=== PATIENT | male | born 1940 | race Caucasian/White ===

== ENCOUNTER 2020-03-28 23:08 | Inpatient (IN) | payer MEDICARE, BC ==
[~2020-03-28] VITALS: Ht 175.3 cm; Wt 118.2 kg
[2020-03-28 23:22] LABS: BASOPHILS 0.2 % (0-2); EOSINOPHILS 4.4 % (0-7); HEMATOCRIT 38.5 % (42.0-54.0); HEMOGLOBIN 11.5 g/dL (13.5-17.5); IMMATURE GRANULOCYTES 0.2 % (0-5); MCH 28.8 pg (26.0-34.0); MCHC 29.9 g/dL (31.0-37.0); MCV 96.5 fL (80.0-100.0); MEAN PLATELET VOLUME 10.1 fL (7.4-10.4); MONOCYTES 8.9 % (2-11); NEUTROPHILS 62.3 % (40-80); PLATELET COUNT 173 10x3/uL (130-400); RBC 3.99 10x6/uL (4.20-6.10); RDW 14.7 % (11.5-14.5); WBC 8.4 10x3/uL (4.8-10.8)
[2020-03-28 23:31] LABS: ANION GAP 6.3 mmol/L (8-16); CALCIUM 8.8 mg/dL (8.5-10.1); CARBON DIOXIDE 34.8 mmol/L (21.0-32.0); CREATININE - SERUM 1.3 mg/dL (0.6-1.3); POTASSIUM - SERUM 4.1 mmol/L (3.5-5.1)
[2020-03-28] MEDS ORDERED: CELEXA40 MG PO (23:33)
[2020-03-28] MEDS ORDERED: GABAPENTIN300 MG PO (23:34)
[2020-03-28] MEDS ORDERED: ROPINIROLE HCL2 MG PO (23:34)
[2020-03-28] MEDS ORDERED: ULTRAM50 MG (23:35)
[2020-03-28] MEDS ORDERED: TRAZODONE HCL150 MG PO (23:35)
[2020-03-28] MEDS ORDERED: MOBIC7.5 MG PO (23:35)
[2020-03-28] MEDS ORDERED: FLOMAX0.4 MG PO (23:36)
[2020-03-28] MEDS ORDERED: LOSARTAN-HCTZ1 EAC1 PO (23:36)
[2020-03-28] MEDS ORDERED: K-DUR20 MEQ PO ×2 (23:36)
[2020-03-28 23:37] LABS: ALBUMIN 3.1 g/dL (3.4-5.0); BILIRUBIN - TOTAL 0.44 mg/dL (0.2-1.3); PROTEIN - SERUM 6.8 g/dL (6.4-8.2)
[2020-03-28] MEDS ORDERED: ZOVIRAX200 MG PO (23:37)
[2020-03-28] MEDS ORDERED: OMEPRAZOLE40 MG PO (23:37)
[2020-03-28] MEDS ORDERED: MEXITIL 150 MG150 MG PO (23:38)
[2020-03-28] MEDS ORDERED: LASIX40 MG PO (23:38)
[2020-03-28] MEDS ORDERED: COREG25 MG PO (23:38)
[2020-03-28 23:39] LABS: BILIRUBIN NEGATIVE (NEGATIVE); KETONE NEGATIVE (NEGATIVE); NITRITE POSITIVE (NEGATIVE); UROBILINOGEN NORMAL mg/dL (< 2)
[2020-03-28 23:41] LABS: BACTERIA MODERATE /HPF (NONE SEEN); WHITE CELLS - URINE >50 HPF (0-1)
--- NOTE | 2020-03-28 23:48 | NUR ---
PT GIVEN PO MDICATIONS PER SEP.
[2020-03-28 23:50] LABS: APTT 28.9 SECONDS (22.8-39.4); INR 1.04 (0.85-1.17); PROTIME 13.6 SECONDS (11.6-15.0)
--- NOTE | 2020-03-29 00:51 | NUR ---
Pt returns from radiology via stretcher. Pt shaw scall light within reach.
[2020-03-29 02:52] VITALS: BP 159/70; Ht 175.3 cm; Wt 118.2 kg
[2020-03-29] MEDS ORDERED: FLUTICASONE PRO16 GM NASAL (03:22)
[2020-03-29 06:02] LABS: HEMATOCRIT 37.3 % (42.0-54.0); HEMOGLOBIN 10.9 g/dL (13.5-17.5)
[2020-03-29 06:17] VITALS: BP 159/70
--- NOTE | 2020-03-29 07:45 | NUR ---
UP TO BR, DANIELLE WELL, NO DISTRESS NOTED, TELE IN PLACE, IV INFUSING, BEDALRM ON
[2020-03-29 08:00] VITALS: BP 150/73
[2020-03-29 12:08] LABS: BASOPHILS 0.3 % (0-2); EOSINOPHILS 3.3 % (0-7); IMMATURE GRANULOCYTES 0.1 % (0-5); LYMPHOCYTES 13.4 % (15-50); MCH 28.4 pg (26.0-34.0); MCHC 29.7 g/dL (31.0-37.0); MCV 95.6 fL (80.0-100.0); MEAN PLATELET VOLUME 10.5 fL (7.4-10.4); MONOCYTES 7.9 % (2-11); PLATELET COUNT 176 10x3/uL (130-400); RBC 3.87 10x6/uL (4.20-6.10); RDW 14.6 % (11.5-14.5); WBC 9.7 10x3/uL (4.8-10.8)
[2020-03-29 12:14] LABS: ALBUMIN 2.9 g/dL (3.4-5.0); ANION GAP 3.4 mmol/L (8-16); BILIRUBIN - TOTAL 0.54 mg/dL (0.2-1.3); CALCIUM 8.1 mg/dL (8.5-10.1); CARBON DIOXIDE 35.7 mmol/L (21.0-32.0); CREATININE - SERUM 1.3 mg/dL (0.6-1.3); POTASSIUM - SERUM 4.1 mmol/L (3.5-5.1); PROTEIN - SERUM 6.3 g/dL (6.4-8.2)
[2020-03-29 16:26] VITALS: BP 160/66
--- NOTE | 2020-03-29 19:38 | NUR ---
PATIENT SITTING UP IN CHAIR WITH EYES CLOSED AND NO S/S OF DISTRESS. CALL LIGHT WITHIN REACH. WILL CONTINUE TO MONITOR.
--- NOTE | 2020-03-29 20:30 | NUR ---
ADMINISTERED MEDS PER ORDERS. PATIENT DENIES OTHER NEEDS. WILL CONTINUE TO MONITOR.
[2020-03-29 22:11] VITALS: BP 124/53
[2020-03-30 01:38] VITALS: BP 164/77
[2020-03-30 04:04] VITALS: BP 150/80
[2020-03-30 06:53] LABS: BASOPHILS 0.3 % (0-2); HEMATOCRIT 38.5 % (42.0-54.0); HEMOGLOBIN 11.3 g/dL (13.5-17.5); IMMATURE GRANULOCYTES 0.1 % (0-5); LYMPHOCYTES 25.7 % (15-50); MCH 28.1 pg (26.0-34.0); MCHC 29.4 g/dL (31.0-37.0); MCV 95.8 fL (80.0-100.0); MONOCYTES 8.8 % (2-11); NEUTROPHILS 61.1 % (40-80); PLATELET COUNT 194 10x3/uL (130-400); RBC 4.02 10x6/uL (4.20-6.10); RDW 14.6 % (11.5-14.5)
[2020-03-30 06:55] LABS: WBC 7.1 10x3/uL (4.8-10.8)
[2020-03-30 06:59] LABS: ANION GAP 6.2 mmol/L (8-16); CALCIUM 8.4 mg/dL (8.5-10.1); CARBON DIOXIDE 36.5 mmol/L (21.0-32.0); CREATININE - SERUM 1.2 mg/dL (0.6-1.3); POTASSIUM - SERUM 3.7 mmol/L (3.5-5.1)
--- NOTE | 2020-03-30 07:05 | NUR ---
A&O SITTING UP IN CHAIR. NO C/O PAIN. NO S/S OF ACUTE DISTRESS NOTED. UP WITH ASSIST. CHAIR ALARM ON. BRUISE TO RIGHT BACK FROM FALL AT HOME. ON 2L O2, NC. IV TO LEFT FOREARM, SL. SITE PATENT WITHOUT REDNESS OR SWELLING. ON TELEMETRY SR 62. DENIES ANY NEEDS AT THIS TIME. CALL LIGHT IN REACH. WILL CONTINUE TO MONITOR.
[2020-03-30 09:11] VITALS: BP 130/57
[2020-03-30 12:25] VITALS: BP 145/81
--- NOTE | 2020-03-30 13:29 | NUR ---
PATIENT DIRECTOR SALES AND MARKETING LIGHT REQUESTING BACK TO BED FROM CHAIR. TWO PERSON ASSIST. PATIENT FREE DROM DISTRESS. NO PAIN OR NEEDS AT THIS TIME. WILL CONTINUE TO MONITOR.
--- NOTE | 2020-03-30 19:42 | NUR ---
PATIENT RESTING IN BED WITH NO S/S OF DISTRESS AND DENIES NEEDS AT THIS TIME. BED IN LOWEST POSITION AND CALL LIGHT WITHIN REACH. ENCOURAGED THE PATIENT TO CALL IF HE HAS NEEDS. WILL CONTINUE TO MONITOR.
[2020-03-30 20:00] VITALS: BP 139/54
[2020-03-31] VITALS: BP 143/62
[2020-03-31 04:00] VITALS: BP 135/52
[2020-03-31 07:38] LABS: ANION GAP 7.7 mmol/L (8-16); CALCIUM 8.3 mg/dL (8.5-10.1); CARBON DIOXIDE 36.4 mmol/L (21.0-32.0); CREATININE - SERUM 1.5 mg/dL (0.6-1.3); POTASSIUM - SERUM 4.1 mmol/L (3.5-5.1)
[2020-03-31 07:49] LABS: BASOPHILS 0.3 % (0-2); EOSINOPHILS 3.6 % (0-7); HEMATOCRIT 42.2 % (42.0-54.0); HEMOGLOBIN 12.9 g/dL (13.5-17.5); IMMATURE GRANULOCYTES 0.2 % (0-5); LYMPHOCYTES 25.9 % (15-50); MCH 28.8 pg (26.0-34.0); MCHC 30.6 g/dL (31.0-37.0); MCV 94.2 fL (80.0-100.0); MEAN PLATELET VOLUME 10.8 fL (7.4-10.4); MONOCYTES 8.6 % (2-11); NEUTROPHILS 61.4 % (40-80); PLATELET COUNT 195 10x3/uL (130-400); RBC 4.48 10x6/uL (4.20-6.10); RDW 14.5 % (11.5-14.5); WBC 6.6 10x3/uL (4.8-10.8)
[2020-03-31 08:36] VITALS: BP 103/67
[2020-03-31 12:39] VITALS: BP 112/63
--- NOTE | 2020-03-31 12:57 | MORECARE ---
CASE MANAGEMENT DISCHARGE SUMMARY PATIENT: CORY GONZALES UNIT: [id number] ADM DATE: 03/29/20 AGE: 79 : 38 SEX: M ROOM/BED: D.2211 AUTHOR: PASTORA CABRERA PHYSICIAN: REFERRING PHYSICIAN: VARGAS STEWART MD DATE OF SERVICE: 03/31/20 Discharge Plan Patient Name: CORY GONZALES [facility] [facility] 1940 Planned Disposition: Home with Home Health Anticipated Discharge Date: Discharge Date: Expected LOS: Initial Reviewer: [email or web address] Initial Review Date: 03/29/2020 Generated: 03/31/20 1:56 pm DCPIA - Discharge Planning Initial Assessment Updated by [email or web address]: Ambar Morris on 03/31/20 12:53 pm * Is the patient Alert and Oriented? Yes * How many steps to enter\exit or inside your home? * PCP [facility]LA D[facility]EL IN [place] * [facility] * Preadmission Environment Home with Family * ADLs Independent * Equipment Bedside Commode Cane CPAP Rolling Walker Shower Chair Walker * List name and contact numbers for known caregivers / representatives who currently or will assist patient after discharge: EUNICE ([phone]) * Verbal permission to speak to the caregivers and representatives has been obtained from the patient. N/A * Community resources currently utilized None * Additional services required to return to the preadmission environment? Yes * Can the patient safely return to the preadmission environment? Yes * Has this patient been hospitalized within the prior 30 days at any hospital? No Patient Name: CORY GONZALES Page 12929 at 1257 All edits/amendments must be made on the electronic document DICTATION DATE: 03/31/20 1256 EP TECHNOLOGIST: NEPTALI 03/31/20 1256 RPT#: [id number] DC DATE: STATUS: ADM IN [facility] [address] [place] [address] END OF REPORT
--- NOTE | 2020-03-31 13:06 | MORECARE ---
CASE MANAGEMENT DISCHARGE SUMMARY PATIENT: CORY GONZALES UNIT: [id number] ADM DATE: 03/29/20 AGE: 79 : 38 SEX: M ROOM/BED: D.2211 AUTHOR: PASTORA CABRERA PHYSICIAN: REFERRING PHYSICIAN: VARGAS STEWART MD DATE OF SERVICE: 03/31/20 Discharge Plan Patient Name: CORY GONZALES Facility: [facility]:[place] : 1940 Planned Disposition: Home with Home Health Anticipated Discharge Date: Discharge Date: Expected LOS: Initial Reviewer: [email or web address] Initial Review Date: 03/29/2020 Generated: 03/31/20 2:05 pm Comments DCP- Discharge Planning Updated by [email or web address]: Ambar Morris on 03/31/20 12:[address] Patient Name: CORY GONZALES Admission Status: ER Accout number: [id number] Admission Date: 03-29-2020 : 1940 Admission Diagnosis:UNSPECIFIED HEMORRHOIDS Attending: VARGAS STEWART Current LOS: 2 Anticipated DC Date: Planned Disposition: Home with Home Health Primary Insurance: MEDICARE A & B Discharge Planning Comments: CM met with patient to complete initial dc planning assessment. CM educated patient on the CM role and verbal consent given by patient to complete assessment. Patient lives at home with his where he is independent with his care. At discharge patient plans to return home and feels this is a safe discharge. He stated that his brother in law will be his driver guide home. CM discussed availability of home health, rehab services, and medical equipment. He has a CPAP ( does not remember the company) cane, walker, shower care, and BSC. He stated that he has a critical care nurse (Cheri) who takes care of his 6 ours a day 5 days a week. The patient was SOB talking to me during the assessment. We will need a walk test prior to DC. He was also concerned about his needing groceries. He said that his brother in law was going to get his sister and get the groceries on Th. He is agreeable to , GABRIEL with [facility]. I will send the referral over. IMM also signed and placed in chart. Patient denied known discharge needs at this time. CM will continue to follow and will assist as needed with dc plans/needs Biomedical Engineer: Ambar Morrsi DCPIA - Discharge Planning Initial Assessment Updated by [email or web address]: Ambar Morris on 03/31/20 12:53 pm * Is the patient Alert and Oriented? Yes * How many steps to enter\exit or inside your home? * PCP K[facility]LA DANIEL IN [place] * [facility] * Preadmission Environment Home with Family * ADLs Independent * Equipment Bedside Commode Cane CPAP Rolling Walker Shower Chair Walker * List name and contact numbers for known caregivers / representatives who currently or will assist patient after discharge: EUNICE ([phone]) * Verbal permission to speak to the caregivers and representatives has been obtained from the patient. N/A * Community resources currently utilized None * Additional services required to return to the preadmission environment? Yes * Can the patient safely return to the preadmission environment? Yes * Has this patient been hospitalized within the prior 30 days at any hospital? No Last DP export: 03/31/20 11:57 a Patient Name: CORY GONZALES Page [id number] at 1306 All edits/amendments must be made on the electronic document DICTATION DATE: 03/31/20 130 BATCH MIXING TRUCK DRIVER: NEPTALI 03/31/20 130 RPT#: [id number] DC DATE: STATUS: ADM IN [facility] [address] [place] [address] END OF REPORT
--- NOTE | 2020-03-31 13:21 | MORECARE ---
CASE MANAGEMENT DISCHARGE SUMMARY PATIENT: CORY GONZALES UNIT: [id number] ADM DATE: 03/29/20 AGE: 79 : 38 SEX: M ROOM/BED: D.2211 AUTHOR: PASTORA CABRERA PHYSICIAN: REFERRING PHYSICIAN: VARGAS STEWART MD DATE OF SERVICE: 03/31/20 Discharge Plan Patient Name: CORY GONZALES Facility: [facility]:[place] : 1940 Planned Disposition: Home with Home Health Anticipated Discharge Date: Discharge Date: Expected LOS: Initial Reviewer: [email or web address] Initial Review Date: 03/29/2020 Generated: 03/31/20 2:21 pm Comments DCP- Discharge Planning Updated by [email or web address]: Ambar Morris on 03/31/20 12:[address] Patient Name: CORY GONZALES Admission Status: ER Accout number: [id number] Admission Date: 03-29-2020 : 1940 Admission Diagnosis:UNSPECIFIED HEMORRHOIDS Attending: VARGAS STEWART Current LOS: 2 Anticipated DC Date: Planned Disposition: Home with Home Health Primary Insurance: MEDICARE A & B Discharge Planning Comments: CM met with patient to complete initial dc planning assessment. CM educated patient on the CM role and verbal consent given by patient to complete assessment. Patient lives at home with his where he is independent with his care. At discharge patient plans to return home and feels this is a safe discharge. He stated that his brother in law will be his milk pickup truck driver home. CM discussed availability of home health, rehab services, and medical equipment. He has a CPAP ( does not remember the company) cane, walker, shower care, and BSC. He stated that he has a home care coordinator (Cheri) who takes care of his 6 ours a day 5 days a week. The patient was SOB talking to me during the assessment. We will need a walk test prior to DC. He was also concerned about his needing groceries. He said that his brother in law was going to get his sister and get the groceries on Th. He is agreeable to , LEONIDAS with [facility]. I will send the referral over. IMM also signed and placed in chart. Patient denied known discharge needs at this time. CM will continue to follow and will assist as needed with dc plans/needs Tube Turner: Ambar Morris DCPIA - Discharge Planning Initial Assessment Updated by [email or web address]: Ambar Morris on 03/31/20 12:53 pm * Is the patient Alert and Oriented? Yes * How many steps to enter\exit or inside your home? * PCP KAYLA DANIEL IN [place] * [facility] * Preadmission Environment Home with Family * ADLs Independent * Equipment Bedside Commode Cane CPAP Rolling Walker Shower Chair Walker * List name and contact numbers for known caregivers / representatives who currently or will assist patient after discharge: EUNICE ([phone]) * Verbal permission to speak to the caregivers and representatives has been obtained from the patient. N/A * Community resources currently utilized None * Additional services required to return to the preadmission environment? Yes * Can the patient safely return to the preadmission environment? Yes * Has this patient been hospitalized within the prior 30 days at any hospital? No External Providers External Provider: [facility] Next Contact Date: Service Request Date: Service Type: Resolution: Reviewer: Comments: Coverage Notice Reviewer: [email or web address] Lo Morris Notice Issued Date-Time: 03/31/2020 12:30 Notice Type: IM Discharge Notice Notice Delivered To: Patient Relationship to Patient: International Marketing Manager Name: Delivery Method: HAND - Hand Delivered Jocelynn Days: Prior Verbal Notification: Recipient Understood Notice: Yes Recipient Signature: Yes Med Rec Note Co-signed by Attending: Coverage Notice Comment: imm served and explained Reviewer: [email or web address] Lo Morris Notice Issued Date-Time: 03/31/2020 12:30 Notice Type: Patient Choice Letter Notice Delivered To: Patient Relationship to Patient: International Marketing Manager Name: Delivery Method: HAND - Hand Delivered Jocelynn Days: Prior Verbal Notification: Recipient Understood Notice: Yes Recipient Signature: Yes Med Rec Note Co-signed by Attending: Coverage Notice Comment: leonidas with care iv Last DP export: 03/31/20 12:06 p Patient Name: CORY GONZALES Page [id number] at 1321 All edits/amendments must be made on the electronic document DICTATION DATE: 03/31/20 1321 ELECTRICAL LINE WORKER: DM 03/31/20 1321 RPT#: [id number] DC DATE: STATUS: ADM IN [facility] [address] [place] [address] END OF REPORT
--- NOTE | 2020-03-31 17:05 | NUR ---
PT SAID HE WAS FEELING LIKE HIS BP WAS A LITTLE LOW. NO SIGNS OR SYMPTOMS NOTED. DID A MANUAL BP AND GOT 118/70. CONTINUING TO MONITOR.
[2020-03-31 17:20] VITALS: BP 96/48
[2020-03-31 20:00] VITALS: BP 109/48
[2020-04-01] VITALS: BP 106/51
--- NOTE | 2020-04-01 01:49 | NUR ---
I have reviewed this patient and I concur with the Shift Assessment completed by the Licensed Practical Nurse today this shift.
[2020-04-01 04:00] VITALS: BP 127/65
[2020-04-01] MEDS ORDERED: OMNICEF300 MG PO (06:44)
--- NOTE | 2020-04-01 08:00 | NUR ---
PATIENT SITTING UP IN BED WITH NO COMPLAINTS OR SIGNS OF DISTRESS. IV INTACT. CALL LIGHT WITHIN REACH.
[2020-04-01 08:50] VITALS: BP 137/65
--- NOTE | 2020-04-01 11:20 | NUR ---
PATIENT WALK TEST DONE AT THIS TIME. SATS WHILE RESTING 93% WALKED TO END OF HALLWAY AND BACK ON RA AND SATS STAYED 91%. NO O2 NEEDED AT THIS TIME.
--- NOTE | 2020-04-01 11:42 | NUR ---
PATIENT RECIEVED DISCHARGE INSTRUCTIONS. VERBALIZED UNDERSTANDING. NO QUESTIONS AT THIS TIME. IV REMOVED WITH CATH TIP INTACT. EXPLAINED TO PATIENT TO SOFTWARE VERIFICATION ENGINEER ANTIBIOTIC AT [facility]. NO QUESTIONS AT THIS TIME. ESCORTED PATIENT TO PRIVATE VEHICLE WITH PERSONAL BELONGINGS VIA WC.-
--- NOTE | 2020-04-01 12:20 | MORECARE ---
CASE MANAGEMENT DISCHARGE SUMMARY PATIENT: CORY GONZALES UNIT: [id number] ADM DATE: 03/29/20 AGE: 79 : 38 SEX: M ROOM/BED: D.2211 AUTHOR: PASTORA CABRERA PHYSICIAN: REFERRING PHYSICIAN: VARGAS STEWART MD DATE OF SERVICE: 04/01/20 Discharge Plan Patient Name: CORY GONZALES Facility: [facility]:[place] : 1940 Planned Disposition: Home with Home Health Anticipated Discharge Date: Discharge Date: Expected LOS: Initial Reviewer: [email or web address] Initial Review Date: 03/29/2020 Generated: 04/01/20 1:20 pm Comments DCP- Discharge Planning Updated by [email or web address]: Ambar Morris on 04/01/20 11:[address] walk test done patient does not qualify for home o2, patient will be discharging home with care iv home health health DCP- Discharge Planning Updated by [email or web address]: Ambar Morris on 03/31/20 12:[address] Patient Name: CORY GONZALES Admission Status: ER Accout number: [id number] Admission Date: 03-29-2020 : 1940 Admission Diagnosis:UNSPECIFIED HEMORRHOIDS Attending: VARGAS STEWART Current LOS: 2 Anticipated DC Date: Planned Disposition: Home with Home Health Primary Insurance: MEDICARE A & B Discharge Planning Comments: CM met with patient to complete initial dc planning assessment. CM educated patient on the CM role and verbal consent given by patient to complete assessment. Patient lives at home with his where he is independent with his care. At discharge patient plans to return home and feels this is a safe discharge. He stated that his brother in law will be his dinkey driver home. CM discussed availability of home health, rehab services, and medical equipment. He has a CPAP ( does not remember the company) cane, walker, shower care, and BSC. He stated that he has a home care scheduler (Cheri) who takes care of his 6 ours a day 5 days a week. The patient was SOB talking to me during the assessment. We will need a walk test prior to DC. He was also concerned about his needing groceries. He said that his brother in law was going to get his sister and get the groceries on . He is agreeable to , LEONIDAS with [facility]. I will send the referral over. IMM also signed and placed in chart. Patient denied known discharge needs at this time. CM will continue to follow and will assist as needed with dc plans/needs Pediatric Licensed Practical Nurse: Ambar Morris DCPIA - Discharge Planning Initial Assessment Updated by [email or web address]: Ambar Morris on 03/31/20 12:53 pm * Is the patient Alert and Oriented? Yes * How many steps to enter\exit or inside your home? * PCP [facility]LA DANIEL IN [place] * [facility] * Preadmission Environment Home with Family * ADLs Independent * Equipment Bedside Commode Cane CPAP Rolling Walker Shower Chair Walker * List name and contact numbers for known caregivers / representatives who currently or will assist patient after discharge: EUNICE ([phone]) * Verbal permission to speak to the caregivers and representatives has been obtained from the patient. N/A * Community resources currently utilized None * Additional services required to return to the preadmission environment? Yes * Can the patient safely return to the preadmission environment? Yes * Has this patient been hospitalized within the prior 30 days at any hospital? No Coverage Notice Reviewer: [email or web address] Lo Morris Notice Issued Date-Time: 03/31/2020 12:30 Notice Type: IM Discharge Notice Notice Delivered To: Patient Relationship to Patient: Installer Name: Delivery Method: HAND - Hand Delivered Jocelynn Days: Prior Verbal Notification: Recipient Understood Notice: Yes Recipient Signature: Yes Med Rec Note Co-signed by Attending: Coverage Notice Comment: imm served and explained Reviewer: [email or web address] Lo Morris Notice Issued Date-Time: 03/31/2020 12:30 Notice Type: Patient Choice Letter Notice Delivered To: Patient Relationship to Patient: Installer Name: Delivery Method: HAND - Hand Delivered Jocelynn Days: Prior Verbal Notification: Recipient Understood Notice: Yes Recipient Signature: Yes Med Rec Note Co-signed by Attending: Coverage Notice Comment: leonidas with care iv Last DP export: 03/31/20 12:21 p Patient Name: CORY GONZALES Page 65050 at 1220 All edits/amendments must be made on the electronic document DICTATION DATE: 04/01/201219 CONVENTION WORKER: NEPTALI 04/01/200 RPT#: [id number] DC DATE: STATUS: ADM IN [facility] [address] [place] [address] END OF REPORT
--- NOTE | 2020-04-02 17:13 | MORECARE ---
CASE MANAGEMENT DISCHARGE SUMMARY PATIENT: CORY GONZALES UNIT: [id number] ADM DATE: 03/29/20 AGE: 79 : 38 SEX: M ROOM/BED: D.2211 AUTHOR: PASTORA CABRERA PHYSICIAN: REFERRING PHYSICIAN: VARGAS STEWART MD DATE OF SERVICE: 04/02/20 Discharge Plan Patient Name: CORY GONZALES Facility: [facility]:[place] : 1940 Planned Disposition: Home with Home Health Anticipated Discharge Date: Discharge Date: 04/01/2020 Expected LOS: Initial Reviewer: [email or web address] Initial Review Date: 03/29/2020 Generated: 04/02/20 6:13 pm Comments DCP- Discharge Planning Updated by [email or web address]: Ambar Morris on 04/01/20 11:[address] walk test done patient does not qualify for home o2, patient will be discharging home with care iv home health health DCP- Discharge Planning Updated by [id number]: Ambar Morris on 03/31/20 12:[address] Patient Name: CORY GONZALES Admission Status: ER Accout number: [id number] Admission Date: 03-29-2020 : 1940 Admission Diagnosis:UNSPECIFIED HEMORRHOIDS Attending: VARGAS STEWART Current LOS: 2 Anticipated DC Date: Planned Disposition: Home with Home Health Primary Insurance: MEDICARE A & B Discharge Planning Comments: CM met with patient to complete initial dc planning assessment. CM educated patient on the CM role and verbal consent given by patient to complete assessment. Patient lives at home with his where he is independent with his care. At discharge patient plans to return home and feels this is a safe discharge. He stated that his brother in law will be his hazmat tanker driver home. CM discussed availability of home health, rehab services, and medical equipment. He has a CPAP ( does not remember the company) cane, walker, shower care, and BSC. He stated that he has a neonatal critical care nurse (Cheri) who takes care of his 6 ours a day 5 days a week. The patient was SOB talking to me during the assessment. We will need a walk test prior to DC. He was also concerned about his needing groceries. He said that his brother in law was going to get his sister and get the groceries on . He is agreeable to JOHN, LEONIDAS with [facility]. I will send the referral over. IMM also signed and placed in chart. Patient denied known discharge needs at this time. CM will continue to follow and will assist as needed with dc plans/needs Compliance Advisor: Ambar Morris DCPIA - Discharge Planning Initial Assessment Updated by [email or web address]: Ambar Morris on 03/31/20 12:53 pm * Is the patient Alert and Oriented? Yes * How many steps to enter\exit or inside your home? * PCP [facility]LA DANIEL IN [place] * [facility] * Preadmission Environment Home with Family * ADLs Independent * Equipment Bedside Commode Cane CPAP Rolling Walker Shower Chair Walker * List name and contact numbers for known caregivers / representatives who currently or will assist patient after discharge: EUNICE ([phone]) * Verbal permission to speak to the caregivers and representatives has been obtained from the patient. N/A * Community resources currently utilized None * Additional services required to return to the preadmission environment? Yes * Can the patient safely return to the preadmission environment? Yes * Has this patient been hospitalized within the prior 30 days at any hospital? No Coverage Notice Reviewer: [email or web address] Lo Morris Notice Issued Date-Time: 03/31/2020 12:30 Notice Type: IM Discharge Notice Notice Delivered To: Patient Relationship to Patient: Radiographer Name: Delivery Method: HAND - Hand Delivered Jocelynn Days: Prior Verbal Notification: Recipient Understood Notice: Yes Recipient Signature: Yes Med Rec Note Co-signed by Attending: Coverage Notice Comment: imm served and explained Reviewer: [id number] Lo Morris Notice Issued Date-Time: 03/31/2020 12:30 Notice Type: Patient Choice Letter Notice Delivered To: Patient Relationship to Patient: Radiographer Name: Delivery Method: HAND - Hand Delivered Jocelynn Days: Prior Verbal Notification: Recipient Understood Notice: Yes Recipient Signature: Yes Med Rec Note Co-signed by Attending: Coverage Notice Comment: leonidas with care iv Last DP export: 04/01/20 11:20 a Patient Name: CORY GONZALES Page 63190 at 1713 All edits/amendments must be made on the electronic document DICTATION DATE: 04/02/201712 APPLIED TECHNOLOGIST: NEPTALI 04/02/201712 RPT#: [id number] DC DATE:04/01/20 STATUS: DIS IN [facility] [address] [place] [address] END OF REPORT
== END 2020-04-01 11:49 | disposition home health service (06) | DRG 394 ==
LOC: D.ER 23:08 → D.MS 03-29 01:38
PROVIDERS: Emergency Medicine; Family Medicine; ADMIT Legal Medicine; ATTEND Legal Medicine
DX: K64.9 Unspecified hemorrhoids (principal); N39.0 Urinary tract infection, site not specified; I10 Essential (primary) hypertension; D64.9 Anemia, unspecified